=== PATIENT | female | born 1955 | race Caucasian/White ===

== ENCOUNTER → 2017-11-22 | Outpatient (CLI) | payer OTHER ==
--- NOTE | 2017-11-30 08:54 | 24HR ---
[place] [address] [employer] REPORT Name: ARYAN ESPARZA Room: [facility]#: [id number] Admission: 11/22/17 Attend Phys: Maeve BARNARD Cowan Discharge: Date of : 55 Date of Service: 11/23/17 1526 Report #: [id number] THIS REPORT FOR: //name// The patient was monitored for a total of 47:59 hours. The total time analyzed was 47:53 hours. Start time was 11:56am1. There was a total of [id number] beats. Less than 1% were Ventricular beats, less than 1% were Supraventricular beats, and patient is not paced. Mean Heart Rate: 69 Total Beats: [id number] Maximum Heart Rate:120 @ 12:24pm2 Tachycardia beats: 1930 (>=100 BPM) 1% Minimum Heart Rate: 43 @ 4:38am3 Bradycardia beats: 1347 (<= 50 BPM) 1% Pauses: 0 (> 2.5 sec.) Longest RR at: 1.517 seconds at 1:13am3 The patient had symptoms of palpitations and jittery sensation, none of which corresponds to arrhythmia IMP: unremarkable 48 hr Holter Electronically Signed On 11-23-2017 15:26:31 [employer] by Jordy Bishop By: [id number] Jordy Bishop MD, FACC /
== END ==
LOC: M.ULTRA 15:55
DX: E04.2 Nontoxic multinodular goiter (principal)